=== PATIENT | male | born 1995 | race Caucasian/White ===

== ENCOUNTER 2017-06-03 11:08 | Emergency (ER) | payer OTHER ==
[2017-06-03 11:16] VITALS: RESP 16; TEMP 99.2; O2SAT 100
--- NOTE | 2017-06-03 11:32 | ED PDOC ---
Arrival/HPI - General Chief Complaint: Male Genitourinary Time Seen by Provider: 06/03/17 11:17 Historian: Patient - History of Present Illness Narrative History of Present Illness (Text): 06/03/17 11:32 21 year old male, no significant pmh, nkda, complaining of bumps on the penis x 1 week and itching rash on the both inner thigh x 3 months. Pt. stated that he had unprotected sex with current girl friend for several months, noticed itching and burning bumps on the penis for the past 1 week, here for the evaluation. Pt. has been experiencing itching rash on the inner upper thigh, admits sweating a lot, no fever or chills, no chest pain or shortness of breath , no night sweat, no penile discharge or urinary symptoms, no other medical or psychological complaints. Past Medical History - Provider Review Nursing Documentation Reviewed: Yes - Psychiatric Hx Substance Use: No Family/Social History - Physician Review Nursing Documentation Reviewed: Yes Family/Social History: Unknown Family HX Smoking Status: Never Smoked Hx Alcohol Use: Yes Frequency of alcohol use: Few days per week Hx Substance Use: No Allergies/Home Meds Allergies/Adverse Reactions: Allergies No Known Allergies Allergy (Verified 06/03/17 11:15) Review of Systems - Review of Systems Constitutional: absent: Fatigue, Fevers Eyes: absent: Vision Changes ENT: absent: Hearing Changes Respiratory: absent: SOB, Cough Cardiovascular: absent: Chest Pain Gastrointestinal: absent: Abdominal Pain, Diarrhea, Nausea, Vomiting Skin: Rash, Pruritis, Skin Lesions. absent: Laceration, Abscess, Ulcer, Cellulitis Neurological: absent: Headache, Dizziness Physical Exam Vital Signs Reviewed: Yes Vital Signs Temp Pulse Resp BP Pulse Ox 06/03/17 11:16 99.2 F 76 16 136/77 100 Temperature: Afebrile Blood Pressure: Normal Pulse: Regular Respiratory Rate: Normal Appearance: Positive for: Well-Appearing, Non-Toxic, Comfortable Pain Distress: Mild Mental Status: Positive for: Alert and Oriented X 3 - Systems Exam Head: Present: Atraumatic, Normocephalic Pupils: Present: PERRL Extroacular Muscles: Present: EOMI Conjunctiva: Present: Normal Mouth: Present: Moist Mucous Membranes Neck: Present: Normal Range of Motion Respiratory/Chest: Present: Clear to Auscultation, Good Air Exchange. No: Respiratory Distress, Accessory Muscle Use Cardiovascular: Present: Regular Rate and Rhythm, Normal S1, S2. No: Murmurs Abdomen: Present: Normal Bowel Sounds. No: Tenderness, Distention, Peritoneal Signs Genitourinary Male: Present: Circumcised Penis, Lesions (visible blister lesion with erythematous base on the gland of the penis and shaft of the penis). No: Penile Discharge, Testicle Tenderness, Penile Swelling, Masses, Hernias, Testicle Swelling Back: Present: Normal Inspection Upper Extremity: Present: Normal Inspection. No: Cyanosis, Edema Lower Extremity: Present: Normal Inspection. No: Edema Neurological: Present: GCS=15, Speech Normal, Motor Func Grossly Intact, Gait Normal, Memory Normal Skin: Present: Warm, Dry, Rashes (visible maculepapule rash with lichenification on the inner thigh of the groin region, no regional lymphenapathy. ), Normal Color Psychiatric: Present: Alert, Oriented x 3, Normal Insight, Normal Concentration Medical Decision Making ED Course and Treatment: 06/03/17 11:59 -Pt. has request gc/chlamydia and herpes test, will treat him as genital herpes. I offered prophylatic treatment for gonorrhea and chlamydia which he refused but I advised him to not have any sexual activities until he knows his results plus he should notified all his sexual partners for the same testings and prophylatic treatment as well. Pt.'s current girlfriend is on the same and request me to speak to the girlfriend as well about today's discussion with the patient's permission obtained, girlfriend awared of the testing and prophylatic treatment which she wants to wait for the patient's result before any treatment. -Valtrex 1gm po ordered. -gc/chlamydia/herpes 1/2 with pcr and culture order. -Discharge home with valtrex, lotrisone, take tylenol or motrin as needed, follow up with your own pmd within 2 days, return to the ER for any new or worsening signs or symptoms. - Medication Orders Current Medication Orders: Discontinued Medications Valacyclovir HCl (Valtrex) 1 gm PO STAT STA PRN Reason: Protocol Stop: 06/03/17 11:55 - PA / YARN WASHER / Resident Statement MD/DO has reviewed & agrees with the documentation as recorded. Disposition/Present on Arrival - Present on Arrival Any Indicators Present on Arrival: No History of DVT/PE: No History of Uncontrolled Diabetes: No Urinary Catheter: No History of Decub. Ulcer: No History Surgical Site Infection Following: None - Disposition Have Diagnosis and Disposition been Completed?: Yes Diagnosis: Penile rash, Tinea cruris Disposition: HOME/ ROUTINE Disposition Time: 12:03 Patient Plan: Discharge Condition: GOOD Additional Instructions: -Discharge home with valtrex, lotrisone, take tylenol or motrin as needed, follow up with your own pmd within 2 days, return to the ER for any new or worsening signs or symptoms. Prescriptions: Clotrimazole/Betamethasone [Lotrisone] 1 appl EXT BID #60 g valACYclovir [Valtrex] 1 gm PO BID #20 tab Referrals: Avery Ingram MD [Staff Provider] - Follow up with primary Forms: [facility] (Mozambican), WORK NOTE
[2017-06-03 12:42] VITALS: BP 137/72; PULSE 79
== END 2017-06-03 12:41 | disposition home or self-care (01) ==
LOC: ED 11:08
DX: R21 Rash and other nonspecific skin eruption (principal); B35.6 Tinea cruris

== ENCOUNTER 2017-09-03 15:38 | Emergency (ER) | payer OTHER ==
--- NOTE | 2017-09-03 16:42 | ED PDOC ---
Arrival/HPI - General Chief Complaint: Abnormal Skin Integrity Time Seen by Provider: 09/03/17 16:35 Historian: Patient - History of Present Illness Narrative History of Present Illness (Text): 09/03/17 16:37 22 y/o male, no significant pmh, nkda, c/o buttock abscess x 1 week. Pt. stated that it started off as a small pimples, been growing, some already draining, no fever or chills, no night sweat, no rash, no dizziness, no fever or chills, eating and drinking well, no palpitation, no rash, no other medical or psychological complaints. Past Medical History - Provider Review Nursing Documentation Reviewed: Yes - Infectious Disease Hx of Infectious Diseases: None - Integumentary Hx Eczema: Yes - Psychiatric Hx Substance Use: No Family/Social History - Physician Review Nursing Documentation Reviewed: Yes Family/Social History: Unknown Family HX Smoking Status: Never Smoked Hx Alcohol Use: Yes Hx Substance Use: No Allergies/Home Meds Allergies/Adverse Reactions: Allergies No Known Allergies Allergy (Verified 09/03/17 16:03) Review of Systems - Review of Systems Constitutional: absent: Fatigue, Fevers Eyes: absent: Vision Changes ENT: absent: Hearing Changes Respiratory: absent: SOB, Cough Cardiovascular: absent: Chest Pain Gastrointestinal: absent: Abdominal Pain, Nausea, Vomiting Skin: Rash, Skin Lesions, Abscess, Cellulitis. absent: Pruritis, Laceration, Ulcer Neurological: absent: Headache, Dizziness, Focal Weakness Psychiatric: absent: Anxiety, Depression, Suicidal Ideation Physical Exam Vital Signs Reviewed: Yes Vital Signs Temp Pulse Resp BP Pulse Ox 09/03/17 16:46 99.8 F H 09/03/17 16:00 100.2 F H 100 H 17 144/81 99 Temperature: Afebrile Blood Pressure: Normal Pulse: Regular Respiratory Rate: Normal Appearance: Positive for: Well-Appearing, Non-Toxic, Comfortable Pain Distress: Moderate Mental Status: Positive for: Alert and Oriented X 3 - Systems Exam Head: Present: Atraumatic, Normocephalic Pupils: Present: PERRL Extroacular Muscles: Present: EOMI Conjunctiva: Present: Normal Mouth: Present: Moist Mucous Membranes Neck: Present: Normal Range of Motion Respiratory/Chest: Present: Clear to Auscultation, Good Air Exchange. No: Respiratory Distress, Accessory Muscle Use Cardiovascular: Present: Regular Rate and Rhythm, Normal S1, S2. No: Murmurs Abdomen: Present: Normal Bowel Sounds. No: Tenderness, Distention, Peritoneal Signs Back: Present: Normal Inspection Upper Extremity: Present: Normal Inspection. No: Cyanosis, Edema Lower Extremity: Present: Normal Inspection. No: Edema Neurological: Present: GCS=15, Speech Normal, Motor Func Grossly Intact, Gait Normal, Memory Normal Skin: Present: Warm, Dry, Rashes (Rt. gluteal region visible 2 abscess with abscess A is mild fluctuancy but cellulitis noted approx. 3cm diameter, abscess B noted to have approx. 1cm fluctuant with approx. 2cm diameter cellulitis, no streaking or ulcers, no pilonoidal or perianal abscess, no regional lymphenapathy. ), Normal Color Psychiatric: Present: Alert, Oriented x 3, Normal Insight, Normal Concentration Medical Decision Making ED Course and Treatment: 09/03/17 16:39 -rocephine IM/bactrim ds -Beside sonogram confirmed there is abscess cavity with fluid. 09/03/17 17:32 -sensation intact, motor 5/5, wound irrigate wit normal saline, clean with betadine, 1% lidocaine injected approx. 1cc locally, sterile procedure, #11 incision made on the abscess A and B with approx. 3cc of yellow purulant abscess drained, packing inserted on the drained abscesses, hemostasis obtained , bacitracin and gauze dressing, less than 1cc of blood loss, sensation intact, motor 5/5. -Discharge home with keflex, bactrim, motrin, keep the dressing dry and clean, wound needs to be checked and dressing needs to be changed on day 2, follow up with your own pmd and general surgeon within 3 days, return to the ER for any new or worsening signs or symptoms. - Medication Orders Current Medication Orders: Discontinued Medications Ceftriaxone Sodium (Rocephin) 1 gm IM STAT STA PRN Reason: Protocol Stop: 09/03/17 17:24 Ibuprofen (Motrin Tab) 800 mg PO STAT STA Stop: 09/03/17 16:48 Last Admin: 09/03/17 17:10 Dose: 800 mg Trimethoprim/Sulfamethoxazole (Bactrim Ds Tab) 1 tab PO STAT STA PRN Reason: Protocol Stop: 09/03/17 16:48 Last Admin: 09/03/17 17:10 Dose: 1 tab - PA / PHYSICIAN ASSISTANT PRIMARY CARE / Resident Statement / has reviewed & agrees with the documentation as recorded. Disposition/Present on Arrival - Present on Arrival Any Indicators Present on Arrival: No History of DVT/PE: No History of Uncontrolled Diabetes: No Urinary Catheter: No History of Decub. Ulcer: No History Surgical Site Infection Following: None - Disposition Have Diagnosis and Disposition been Completed?: Yes Diagnosis: Abscess of cellulitis of buttock Disposition: HOME/ ROUTINE Disposition Time: 16:42 Patient Plan: Discharge Patient Problems: Current Active Problems Problem Status Onset Abscess of cellulitis of buttock Acute Condition: IMPROVED Additional Instructions: -Discharge home with keflex, bactrim, motrin, keep the dressing dry and clean, wound needs to be checked and dressing needs to be changed on day 2, follow up with your own pmd and general surgeon within 3 days, return to the ER for any new or worsening signs or symptoms. Prescriptions: Cephalexin [Keflex] 500 mg PO QID #40 capsule Ibuprofen [Motrin Tab] 800 mg PO TID PRN #30 tab PRN Reason: Other Sulfamethoxazole/Trimethoprim [Bactrim DS 800 mg-160 mg] 1 tab PO BID #20 tab Ref[place] [facility] [place] [facility] [place] - Follow up with primary Lopez Greene MD [Staff Provider] - Follow up with primary Forms: WORK NOTE
[2017-09-03] MEDS ORDERED: Tmp-Smz 800 mg-160 mg DS Tab PO STA (16:47)
[2017-09-03] MEDS ORDERED: cefTRIAXone (Rocephin) 1 gm Inj IM STA ×2 (16:47→17:23)
[2017-09-03 17:36] VITALS: BP 138/78; PULSE 94; RESP 18; TEMP 98.8; O2SAT 98
== END 2017-09-03 18:34 | disposition home or self-care (01) ==
LOC: ED 15:38
DX: L02.31 Cutaneous abscess of buttock (principal)
CPT/HCPCS: 10060; 96372; 99284; J0696

== ENCOUNTER 2017-09-05 17:58 | Emergency (ER) | payer OTHER ==
[2017-09-05 18:01] VITALS: BMI 22.6
[2017-09-05 18:05] VITALS: RESP 18; TEMP 98.5
--- NOTE | 2017-09-05 19:08 | ED PDOC ---
Arrival/HPI - General Chief Complaint: Abnormal Skin Integrity Time Seen by Provider: 09/05/17 18:11 Historian: Patient - History of Present Illness Narrative History of Present Illness (Text): 09/05/17 19:06 22-year-old presents today for wound check and packing removal to the right buttocks. Patient states 2 days ago he was seen in the emergency room and had incision and drainage of 2 separate abscesses. Patient complaining of minimal pain but states the pain is improved. He denies fevers or chills. Patient states he just started the antibiotics today. He denies any other complaints. Symptom Course: Improving Quality: Aching, Throbbing Past Medical History - Provider Review Nursing Documentation Reviewed: Yes - Travel History Have you recently traveled outside [place] w/in the past 3 mons?: No - Infectious Disease Hx of Infectious Diseases: None - Integumentary Hx Eczema: Yes - Psychiatric Hx Substance Use: No Family/Social History - Physician Review Nursing Documentation Reviewed: Yes Family/Social History: Unknown Family HX Smoking Status: Never Smoked Hx Alcohol Use: Yes Hx Substance Use: No Allergies/Home Meds Allergies/Adverse Reactions: Allergies No Known Allergies Allergy (Verified 09/03/17 16:03) Review of Systems - Review of Systems Constitutional: absent: Fatigue, Fevers Respiratory: absent: SOB, Cough Cardiovascular: absent: Chest Pain, Palpitations Gastrointestinal: absent: Abdominal Pain, Nausea, Vomiting Genitourinary Male: absent: Dysuria Skin: Abscess Neurological: absent: Headache, Dizziness Psychiatric: absent: Anxiety, Depression Physical Exam Vital Signs Reviewed: Yes Vital Signs Temp Pulse Resp BP Pulse Ox 09/05/17 17:59 98.5 F 83 18 132/66 98 Temperature: Afebrile Blood Pressure: Normal Pulse: Regular Respiratory Rate: Normal Appearance: Positive for: Well-Appearing, Non-Toxic, Comfortable Pain Distress: None Mental Status: Positive for: Alert and Oriented X 3 - Systems Exam Head: Present: Atraumatic Neck: Present: Normal Range of Motion Respiratory/Chest: Present: Clear to Auscultation, Good Air Exchange. No: Respiratory Distress, Accessory Muscle Use Cardiovascular: Present: Regular Rate and Rhythm, Normal S1, S2. No: Murmurs Neurological: Present: GCS=15, Speech Normal Skin: Present: Warm, Dry, Other (there are 2 wounds with packing in place; no erythema; + minimal induration; no purulent discharge. minimal tenderness. ) Psychiatric: Present: Alert, Oriented x 3 Medical Decision Making ED Course and Treatment: 09/05/17 19:10 Patient is nontoxic well-appearing in no distress. Vital signs are stable. Patient with 2 abscesses to the left buttocks: Healing well. Packing removed. Minimal tenderness. No erythema and minimal induration. No purulent discharge. dressing applied. pt currently on bactrim and keflex. Patient was advised to continue antibiotics as prescribed and follow up with a surgeon within the next 2 days. Patient was advised to use warm compresses warm soaks. Patient was advised to return immediately if symptoms worsen persist or if new symptoms develop Patient verbalizes understanding of discharge instructions and need for immediate followup. all aspects of this case were discussed the attending of record. Impression:Wound check, abscess buttocks continue Motrin every 6 hours as needed for pain continue antibiotics as prescribed. Warm compresses and warm soaks frequently Follow-up with a surgeon within the next 2 days Follow-up the primary care physician within the next 2 days Return immediately if symptoms worsen persist or if new symptoms develop: High fevers, increasing pain, increasing redness, swelling or if any other concerning symptoms develop. 09/05/17 19:25 Disposition/Present on Arrival - Present on Arrival Any Indicators Present on Arrival: No History of DVT/PE: No History of Uncontrolled Diabetes: No Urinary Catheter: No History of Decub. Ulcer: No History Surgical Site Infection Following: None - Disposition Have Diagnosis and Disposition been Completed?: Yes Diagnosis: Abscess of buttock, Encounter for wound re-check Disposition: HOME/ ROUTINE Disposition Time: 19:24 Patient Plan: Discharge Condition: GOOD Discharge Instructions (ExitCare): Abscess (ED) Additional Instructions: continue Motrin every 6 hours as needed for pain continue antibiotics as prescribed. Warm compresses and warm soaks frequently Follow-up with a surgeon within the next 2 days Follow-up the primary care physician within the next 2 days Return immediately if symptoms worsen persist or if new symptoms develop: High fevers, increasing pain, increasing redness, swelling or if any other concerning symptoms develop. Referrals: Urbano Green MD [Primary Care Provider] - Follow up with primary Mati Stroud MD [Staff Provider] - Follow up with primary Lopez Greene MD [Staff Provider] - Follow up with primary [facility] [Outside] - Follow up with primary
[2017-09-05 19:30] VITALS: BP 128/62; PULSE 78; O2SAT 99
== END 2017-09-05 19:37 | disposition home or self-care (01) ==
LOC: ED 17:58
DX: Z51.89 Encounter for other specified aftercare (principal)

== ENCOUNTER 2019-01-03 12:31 | Emergency (ER) | payer MEDICAID, OTHER ==
[2019-01-03 12:31] VITALS: BMI 22.6
--- NOTE | 2019-01-03 13:34 | ED PDOC ---
Arrival/HPI - General Chief Complaint: Chest Pain Time Seen by Provider: 01/03/19 12:35 Historian: Patient - History of Present Illness Narrative History of Present Illness (Text): 01/03/19 12:57 23 year old male, with no significant past medical history, presents to the ED for evaluation of L sided chest pain which started yesterday afternoon. Patient describes today the left sided chest pain is intermittent and pressure like with associated difficulty breathing and tingling to left arm. Patient currently informs improved symptoms with no shortness of breath or trouble breathing at this time. Patient denies any fevers, chills, headache, dizziness, cough, abdominal pain, nausea, vomiting, diarrhea, back pain, neck pain, or any other complaints. Patient denies any trauma or injury. Denies any recent travel or any history of drug use. PMD Norma Time/Duration: 24 hours Symptom Onset: Gradual Symptom Course: Improving Activities at Onset: Light Context: Home Past Medical History - Provider Review Nursing Documentation Reviewed: Yes - Infectious Disease Hx of Infectious Diseases: None - Integumentary Hx Eczema: Yes - Psychiatric Hx Substance Use: No Family/Social History - Physician Review Nursing Documentation Reviewed: Yes Family/Social History: Hypertension Smoking Status: Never Smoked Hx Alcohol Use: Yes Hx Substance Use: No Allergies/Home Meds Allergies/Adverse Reactions: Allergies No Known Allergies Allergy (Verified 09/03/17 16:03) Review of Systems - Physician Review All systems were reviewed & negative as marked: Yes - Review of Systems Constitutional: absent: Fevers Eyes: absent: Vision Changes Respiratory: absent: SOB, Cough, Sputum Cardiovascular: Chest Pain. absent: Palpitations, PACHECO Gastrointestinal: absent: Abdominal Pain, Diarrhea, Nausea, Vomiting, Appetite Changes Genitourinary Male: absent: Dysuria, Urinary Output Changes Musculoskeletal: absent: Back Pain, Neck Pain Skin: absent: Rash Neurological: absent: Headache, Dizziness, Focal Weakness Endocrine: absent: Diaphoresis Psychiatric: absent: Anxiety Physical Exam Vital Signs Reviewed: Yes Vital Signs Temp Pulse Resp BP Pulse Ox 01/03/19 12:50 98.0 F 89 16 120/76 100 01/03/19 12:40 98.4 F 74 18 125/70 99 Temperature: Afebrile Blood Pressure: Normal Pulse: Regular Respiratory Rate: Normal Appearance: Positive for: Well-Appearing, Non-Toxic, Comfortable Pain Distress: None Mental Status: Positive for: Alert and Oriented X 3 - Systems Exam Head: Present: Atraumatic, Normocephalic Pupils: Present: PERRL Extroacular Muscles: Present: EOMI Conjunctiva: Present: Normal Mouth: Present: Moist Mucous Membranes Neck: Present: Normal Range of Motion Respiratory/Chest: Present: Clear to Auscultation, Good Air Exchange. No: Respiratory Distress, Accessory Muscle Use Cardiovascular: Present: Regular Rate and Rhythm, Normal S1, S2. No: Murmurs Abdomen: No: Tenderness, Distention, Peritoneal Signs Upper Extremity: Present: Normal Inspection. No: Cyanosis, Edema Lower Extremity: Present: Normal Inspection. No: Edema Neurological: Present: GCS=15, Speech Normal Skin: Present: Warm, Dry, Normal Color. No: Rashes Psychiatric: Present: Alert, Oriented x 3, Normal Insight, Normal Concentration Medical Decision Making ED Course and Treatment: 01/03/19 12:57 Impression: 23 year old male presents to the ED for evaluation of chest pain. Plan: -- Chest X-Ray -- Reassess and disposition Prior Visits: Notes and results from previous visits were reviewed. Progress Notes: 01/03/19 12:57 EKG reviewed, shows NSR @ 74bpm, non-specific ST/T wave changes. CXR : NAD. On reevaluation, patient remains awake alert and oriented 3 in no acute distress. Diagnostic results d/w the patient. Diagnosis of chest wall pain d/w the patient. Advised to follow up with primary care physician in 1-2 days without fail. Advised to take medication as prescribed. Return to the emergency room at any time for any new or worsening symptoms. Patient states he fully agrees with and understands discharge instructions. States that he agrees with the plan and disposition. Verbalized and repeated discharge instructions and plan. I have given the patient opportunity to ask any additional questions. - RAD Interpretation Radiology Orders: 01/03/19 12:57 CHEST TWO VIEWS (PA/LAT) [RAD] Stat - PA / PIANO ASSEMBLER / Resident Statement MD/DO has reviewed & agrees with the documentation as recorded. - Scribe Statement The provider has reviewed the documentation as recorded by the Scribe Juan Luis Navarro. All medical record entries made by the Scribe were at my direction and personally dictated by me. I have reviewed the chart and agree that the record accurately reflects my personal performance of the history, physical exam, medical decision making, and the department course for this patient. I have also personally directed, reviewed, and agree with the discharge instructions and disposition. Disposition/Present on Arrival - Present on Arrival Any Indicators Present on Arrival: No History of DVT/PE: No History of Uncontrolled Diabetes: No Urinary Catheter: No History of Decub. Ulcer: No History Surgical Site Infection Following: None - Disposition Have Diagnosis and Disposition been Completed?: Yes Diagnosis: Chest wall pain Disposition: HOME/ ROUTINE Disposition Time: 13:50 Patient Plan: Discharge Condition: STABLE Discharge Instructions (ExitCare): Costochondritis, Chest Pain (ED) Additional Instructions: Thank you for letting us take care of you today. You were treated for chest wall pain. The emergency medical care you received today was directed at your acute symptoms. If you were prescribed any medication, please fill it and take as directed. It may take several days for your symptoms to resolve. Return to the Emergency Department if your symptoms worsen, do not improve, or if you have any other problems. Please contact your doctor in 2 days for re-evaluation and follow up. Bring any paperwork you were given at discharge with you along with any medications you are taking to your follow up visit. Our treatment cannot replace ongoing medical care by a primary care provider (PCP) outside of the emergency department. Thank you for allowing the [facility] team to be part of your care today. If you had an X-Ray : A Radiologist will review the ED reading if any change in treatment is needed we will contact you. Prescriptions: Naproxen 500 mg PO BID PRN #20 tablet PRN Reason: Pain, Moderate (4-7) Forms: [employer] (South African), SCHOOL NOTE, WORK NOTE
[2019-01-03 14:36] VITALS: BP 126/57; TEMP 97.3; O2SAT 98
[2019-01-03 14:42] VITALS: PULSE 75; RESP 17
--- NOTE | 2019-01-03 14:49 | RAD ---
Date of service: 01/03/2019 HISTORY: pain COMPARISON: No prior. TECHNIQUE: Chest PA and lateral FINDINGS: LUNGS: No active pulmonary disease. PLEURA: No significant pleural effusion identified. No pneumothorax apparent. CARDIOVASCULAR: No aortic atherosclerotic calcification present. Normal cardiac size. No pulmonary vascular congestion. OSSEOUS STRUCTURES: No significant abnormalities. VISUALIZED UPPER ABDOMEN: Normal. OTHER FINDINGS: None. IMPRESSION: No active disease.
--- NOTE | 2019-01-03 21:00 | CARD ---
APPROVED REPORT Date of service: 01/03/2019 EKG Measurement Heart [id number] <Conclusion> Normal sinus rhythm Normal ECG
== END 2019-01-03 14:41 | disposition home or self-care (01) ==
LOC: ED 12:31
DX: R07.89 Other chest pain (principal)